=== PATIENT | male | born 1970 | race Caucasian/White ===

== ENCOUNTER 2020-05-25 12:59 | Emergency (ER) | payer MEDICARE ==
[~2020-05-25] VITALS: Wt 70.3 kg
[~2020-05-25 12:59] MED LIST: BENADRYL50 MG PO; KEFLEX500 MG PO; MOTRIN800 MG PO; PROTONIX40 MG PO; ZOFRAN ODT4 MG SL
[2020-05-25 14:08] LABS: BASO # 0.1 10*3/uL (0.0-0.1); BASO % 0.8 % (0.0-1.0); EOS # 0.4 10*3/uL (0.0-0.4); EOS % 6.6 % (1.0-4.0); HEMATOCRIT 37.3 % (42.0-52.0); LYMPH # 1.3 10*3/uL (1.3-4.4); LYMPH % 19.6 % (27.0-41.0); MEAN CELL VOLUME 87.1 fl (80.0-94.0); MEAN CORPUSCULAR HGB CONC 32.2 g/dl (33.0-37.0); MEAN PLATELET VOLUME 9.5 fl (9.6-12.3); MONO # 0.6 10*3/uL (0.1-1.0); MONO % 9.3 % (3.0-9.0); NEUT # 4.2 10*3/uL (2.3-7.9); NEUT % 63.5 % (47.0-73.0); PLATELET COUNT AUTOMATED 194 10*3/uL (130-400); RED BLOOD COUNT 4.28 10*6/uL (4.50-5.90); RED CELL DISTRI WIDTH 13.2 % (0-14.5); WHITE BLOOD COUNT 6.5 10*3/uL (4.8-10.8)
[2020-05-25 14:25] LABS: ALBUMIN 3.2 gm/dl (3.1-4.5); BUN 18 mg/dl (7-24); CHLORIDE 107 mmol/L (98-107); CREATININE 0.88 mg/dL (0.70-1.30); POTASSIUM 4.7 mmol/L (3.5-5.1); SGOT/AST 11 IU/L (3-35); SGPT/ALT 13 U/L (12-78); SODIUM 139 mmol/L (136-145); TOTAL PROTEIN 7.2 gm/dL (6.4-8.2)
[2020-05-25 14:26] LABS: ETHYL ALCOHOL < 3.0 mg/dl (<3)
[2020-05-25 14:28] LABS: ALKALINE PHOSPHATASE 98 U/L (45-117)
[2020-05-25 14:29] LABS: TROPONIN I < 0.015 ng/ml (<0.045)
[2020-05-25 16:04] LABS: BILIRUBIN Negative (Negative); BLOOD Negative (Negative); CLARITY Clear (Clear); COLOR Yellow (Yellow); GLUCOSE Negative (Negative); KETONE Trace (Negative); LEUKO ESTERASE Negative (Negative); NITRITE Negative (Negative); SPECIFIC GRAVITY >= 1.030 (1.001-1.030)
[2020-05-25 16:10] LABS: URINE AMPHETAMINES < 1000 (1000ng/ml); URINE BARBITURATES < 200 (200ng/ml); URINE BENZODIAZEPINES < 200 (200ng/ml); URINE CANNABINOIDS (THC) > 50 (50ng/ml); URINE COCAINE < 300 (300ng/ml); URINE METHADONE < 300 (300ng/ml); URINE OPIATES < 300 (300ng/ml)
[2020-05-25 16:11] LABS: URINE PHENCYCLIDINE < 25 (25ng/ml)
[2020-05-25 16:15] LABS: BACTERIA TRACE; EPITHELIAL CELLS 0-2; MUCOUS TRACE; WBC 0-2 wbc/hpf (0-5)
== END 2020-05-25 16:50 | disposition home or self-care (01) ==
LOC: ED 12:59
PROVIDERS: Physician Assistant
DX: S80.02XA Contusion of left knee, initial encounter (principal); S80.01XA Contusion of right knee, initial encounter; S00.81XA Abrasion of other part of head, initial encounter; F17.200 Nicotine dependence, unspecified, uncomplicated; W19.XXXA Unspecified fall, initial encounter; Y93.89 Activity, other specified; Y92.89 Other specified places as the place of occurrence of the external cause; Y99.8 Other external cause status

== ENCOUNTER 2020-05-30 05:21 | Emergency (ER) | payer MEDICARE ==
[~2020-05-30] VITALS: Ht 177.8 cm; Wt 74.8 kg
[2020-05-30 06:52] LABS: BASO % 0.5 % (0.0-1.0); EOS # 0.4 10*3/uL (0.0-0.4); EOS % 6.6 % (1.0-4.0); HEMATOCRIT 37.1 % (42.0-52.0); LYMPH # 1.1 10*3/uL (1.3-4.4); LYMPH % 17.9 % (27.0-41.0); MEAN CELL VOLUME 87.3 fl (80.0-94.0); MEAN CORPUSCULAR HGB 28.7 pg (27.0-31.0); MEAN CORPUSCULAR HGB CONC 32.9 g/dl (33.0-37.0); MONO # 1.1 10*3/uL (0.1-1.0); MONO % 18.2 % (3.0-9.0); NEUT # 3.4 10*3/uL (2.3-7.9); NEUT % 56.6 % (47.0-73.0); PLATELET COUNT AUTOMATED 161 10*3/uL (130-400); RED BLOOD COUNT 4.25 10*6/uL (4.50-5.90); RED CELL DISTRI WIDTH 13.2 % (0-14.5); WHITE BLOOD COUNT 6.1 10*3/uL (4.8-10.8)
[2020-05-30 07:09] LABS: ALBUMIN 3.1 gm/dl (3.1-4.5); ALKALINE PHOSPHATASE 93 U/L (45-117); BUN 13 mg/dl (7-24); CHLORIDE 104 mmol/L (98-107); CPK 172 U/L (39-308); CREATININE 0.84 mg/dL (0.70-1.30); POTASSIUM 3.7 mmol/L (3.5-5.1); SGOT/AST 12 IU/L (3-35); SGPT/ALT 18 U/L (12-78); SODIUM 138 mmol/L (136-145); TOTAL PROTEIN 7.3 gm/dL (6.4-8.2)
== END 2020-05-30 09:52 | disposition home or self-care (01) ==
LOC: ED 05:21
PROVIDERS: Internal Medicine
DX: R45.1 Restlessness and agitation (principal); F17.200 Nicotine dependence, unspecified, uncomplicated

== ENCOUNTER 2021-04-21 12:51 | Emergency (ER) | payer MEDICARE ==
[~2021-04-21] VITALS: Wt 68.0 kg
[2021-04-21 13:29] LABS: BASO # 0.1 10*3/uL (0.0-0.1); BASO % 0.8 % (0.0-1.0); EOS # 0.6 10*3/uL (0.0-0.4); EOS % 8.1 % (1.0-4.0); LYMPH # 1.8 10*3/uL (1.3-4.4); LYMPH % 23.6 % (27.0-41.0); MEAN CELL VOLUME 87.3 fl (80.0-94.0); MEAN CORPUSCULAR HGB 27.8 pg (27.0-31.0); MEAN CORPUSCULAR HGB CONC 31.9 g/dl (33.0-37.0); MEAN PLATELET VOLUME 9.6 fl (9.6-12.3); MONO # 0.8 10*3/uL (0.1-1.0); MONO % 10.6 % (3.0-9.0); NEUT # 4.3 10*3/uL (2.3-7.9); NEUT % 56.6 % (47.0-73.0); PLATELET COUNT AUTOMATED 188 10*3/uL (130-400); RED BLOOD COUNT 4.24 10*6/uL (4.50-5.90); RED CELL DISTRI WIDTH 14.2 % (0-14.5); WHITE BLOOD COUNT 7.5 10*3/uL (4.8-10.8)
[2021-04-21 13:37] LABS: BILIRUBIN Negative (Negative); BLOOD Negative (Negative); CLARITY Clear (Clear); COLOR Yellow (Yellow); GLUCOSE Negative (Negative); KETONE Negative (Negative); LEUKO ESTERASE Negative (Negative); NITRITE Negative (Negative); PH 6.5 (4.5-8.0); SPECIFIC GRAVITY 1.025 (1.001-1.030)
[2021-04-21 13:45] LABS: BACTERIA TRACE; EPITHELIAL CELLS 0-2; MUCOUS 1+; WBC 0-2 wbc/hpf (0-5)
[2021-04-21 13:46] LABS: ALBUMIN 3.1 gm/dl (3.1-4.5); ALKALINE PHOSPHATASE 111 U/L (45-117); BUN 15 mg/dl (7-24); CHLORIDE 104 mmol/L (98-107); CREATININE 0.75 mg/dL (0.70-1.30); POTASSIUM 3.9 mmol/L (3.5-5.1); SGOT/AST 15 IU/L (3-35); SGPT/ALT 16 U/L (12-78); SODIUM 136 mmol/L (136-145); TOTAL PROTEIN 7.4 gm/dL (6.4-8.2)
== END 2021-04-21 16:38 | disposition home or self-care (01) ==
LOC: ED 12:51
PROVIDERS: Physician Assistant
DX: Z00.00 Encounter for general adult medical examination without abnormal findings (principal)

== ENCOUNTER 2021-04-25 15:14 | Emergency (ER) | payer MEDICARE | END 2021-04-25 17:09 | disposition home or self-care (01) | LOC: ED 15:14 | DX: S60.416A Abrasion of right little finger, initial encounter (principal); W18.39XA Other fall on same level, initial encounter; Y93.89 Activity, other specified; Y92.89 Other specified places as the place of occurrence of the external cause; Y99.8 Other external cause status ==

== ENCOUNTER 2021-10-11 10:13 | Emergency (ER) | payer MEDICARE ==
[~2021-10-11] VITALS: Wt 71.7 kg
[2021-10-11 11:38] LABS: BASO # 0.1 10*3/uL (0.0-0.1); BASO % 0.6 % (0.0-1.0); EOS # 0.3 10*3/uL (0.0-0.4); HEMATOCRIT 33.3 % (42.0-52.0); LYMPH # 1.2 10*3/uL (1.3-4.4); MEAN CELL VOLUME 87.9 fl (80.0-94.0); MEAN CORPUSCULAR HGB 28.8 pg (27.0-31.0); MEAN CORPUSCULAR HGB CONC 32.7 g/dl (33.0-37.0); MEAN PLATELET VOLUME 10.5 fl (9.6-12.3); NEUT # 5.6 10*3/uL (2.3-7.9); PLATELET COUNT AUTOMATED 150 10*3/uL (130-400); RED BLOOD COUNT 3.79 10*6/uL (4.50-5.90); RED CELL DISTRI WIDTH 13.9 % (0-14.5); WHITE BLOOD COUNT 8.2 10*3/uL (4.8-10.8)
[2021-10-11 11:55] LABS: ALKALINE PHOSPHATASE 108 U/L (45-117); BUN 13 mg/dl (7-24); CHLORIDE 107 mmol/L (98-107); CREATININE 0.81 mg/dL (0.70-1.30); POTASSIUM 3.8 mmol/L (3.5-5.1); SGOT/AST 17 IU/L (3-35); SGPT/ALT 16 U/L (12-78); SODIUM 135 mmol/L (136-145); TOTAL PROTEIN 7.1 gm/dL (6.4-8.2)
[2021-10-11 14:21] LABS: BILIRUBIN Negative (Negative); BLOOD Negative (Negative); CLARITY Cloudy (Clear); COLOR Yellow (Yellow); GLUCOSE Negative (Negative); KETONE Trace (Negative); LEUKO ESTERASE 3+ (Negative); NITRITE Positive (Negative); SPECIFIC GRAVITY 1.025 (1.001-1.030)
[2021-10-11 14:37] LABS: BACTERIA 3+; WBC 21-30 wbc/hpf (0-5)
[2021-10-11] MEDS ORDERED: MACROBID100 M1 PO (15:19)
== END 2021-10-11 15:30 | disposition home or self-care (01) ==
LOC: ED 10:13
PROVIDERS: Student in an Organized Health Care Education/Training Program
DX: S00.83XA Contusion of other part of head, initial encounter (principal); N39.0 Urinary tract infection, site not specified; W18.39XA Other fall on same level, initial encounter; Y93.89 Activity, other specified; Y92.89 Other specified places as the place of occurrence of the external cause; Y99.8 Other external cause status

== ENCOUNTER 2022-01-11 17:58 | Inpatient (IN) | payer OTHER ==
[~2022-01-11] VITALS: Ht 182.8 cm; Wt 74.0 kg
[~2022-01-11 17:58] MED LIST changes: +MACROBID100 M1 PO
[2022-01-11 18:51] VITALS: BP 98/63
[2022-01-11 20:21] LABS: BASO # 0.1 10*3/uL (0.0-0.1); BASO % 0.4 % (0.0-1.0); EOS # 0.2 10*3/uL (0.0-0.4); EOS % 1.1 % (1.0-4.0); HEMATOCRIT 35.7 % (42.0-52.0); LYMPH # 1.4 10*3/uL (1.3-4.4); LYMPH % 9.4 % (27.0-41.0); MEAN CELL VOLUME 86.2 fl (80.0-94.0); MEAN CORPUSCULAR HGB 28.7 pg (27.0-31.0); MEAN CORPUSCULAR HGB CONC 33.3 g/dl (33.0-37.0); MEAN PLATELET VOLUME 9.8 fl (9.6-12.3); MONO # 1.4 10*3/uL (0.1-1.0); MONO % 9.5 % (3.0-9.0); NEUT # 11.4 10*3/uL (2.3-7.9); NEUT % 79.1 % (47.0-73.0); PLATELET COUNT AUTOMATED 217 10*3/uL (130-400); RED BLOOD COUNT 4.14 10*6/uL (4.50-5.90); RED CELL DISTRI WIDTH 13.4 % (0-14.5); WHITE BLOOD COUNT 14.4 10*3/uL (4.8-10.8)
[2022-01-11 20:31] LABS: ACT PARTIAL THROMBO TIME 30.2 SECONDS (20.0-32.1); INTERNATIONAL NORM RATIO 1.1 (2.0-3.5)
[2022-01-11 20:38] LABS: ALKALINE PHOSPHATASE 157 U/L (45-117); BUN 17 mg/dl (7-24); CHLORIDE 102 mmol/L (98-107); CREATININE 0.82 mg/dL (0.70-1.30); LIPASE 130 U/L (73-393); POTASSIUM 3.8 mmol/L (3.5-5.1); SGOT/AST 20 IU/L (3-35); SGPT/ALT 21 U/L (12-78); SODIUM 137 mmol/L (136-145); TOTAL PROTEIN 7.6 gm/dL (6.4-8.2)
[2022-01-11] MEDS ORDERED: TRAZODONE150 MG PO (23:03)
[2022-01-11] MEDS ORDERED: RISPERIDONE2 M2 PO (23:05)
[2022-01-11] MEDS ORDERED: DONEPEZIL HCL10 MG PO (23:05)
[2022-01-11] MEDS ORDERED: GOOD NEIGHBOR L10 MG PO (23:06)
[2022-01-11] MEDS ORDERED: TERBINAFINE250 MG PO (23:06)
[2022-01-11 23:16] VITALS: BP 102/65
[2022-01-12] VITALS (9 sets, daily range): BP systolic 89–112; BP diastolic 59–74
[2022-01-12] MEDS ORDERED: RISPERDAL2 M1 PO (01:26)
[2022-01-12] MEDS ORDERED: TRAZODONE150 MG PO (01:26)
[2022-01-12] MEDS ORDERED: DONEPEZIL HYDRO10 MG PO (01:26)
[2022-01-12] MEDS ORDERED: GOOD NEIGHBOR L10 MG PO (01:28)
[2022-01-12 05:25] LABS: BUN 13 mg/dl (7-24); CHLORIDE 107 mmol/L (98-107); CREATININE 0.64 mg/dL (0.70-1.30); POTASSIUM 3.6 mmol/L (3.5-5.1); SODIUM 140 mmol/L (136-145)
[2022-01-12 06:04] LABS: HEMATOCRIT 30.7 % (42.0-52.0); MEAN CELL VOLUME 88.2 fl (80.0-94.0); MEAN CORPUSCULAR HGB 28.7 pg (27.0-31.0); MEAN CORPUSCULAR HGB CONC 32.6 g/dl (33.0-37.0); MEAN PLATELET VOLUME 10.3 fl (9.6-12.3); PLATELET COUNT AUTOMATED 210 10*3/uL (130-400); RED BLOOD COUNT 3.48 10*6/uL (4.50-5.90); RED CELL DISTRI WIDTH 13.5 % (0-14.5); WHITE BLOOD COUNT 14.3 10*3/uL (4.8-10.8)
[2022-01-12 06:09] LABS: MANUAL DIFF REFLEX YES
[2022-01-12 06:29] LABS: TOTAL CELLS COUNTED 100 #CELLS
[2022-01-12 06:30] LABS: ACANTHOCYTES FEW; BURR CELLS MODERATE; PLATELET SUFFICIENCY NORMAL (NORMAL); SCHISTOCYTES FEW
[2022-01-13] VITALS: BP 109/75
[2022-01-13 05:08] LABS: BUN 6 mg/dl (7-24); CHLORIDE 108 mmol/L (98-107); CREATININE 0.63 mg/dL (0.70-1.30); POTASSIUM 3.6 mmol/L (3.5-5.1); SGOT/AST 14 IU/L (3-35); SGPT/ALT 17 U/L (12-78); SODIUM 140 mmol/L (136-145); TOTAL PROTEIN 6.4 gm/dL (6.4-8.2)
[2022-01-13 05:09] LABS: ALKALINE PHOSPHATASE 121 U/L (45-117)
[2022-01-13 06:37] LABS: BASO # 0.1 10*3/uL (0.0-0.1); BASO % 0.6 % (0.0-1.0); EOS # 0.6 10*3/uL (0.0-0.4); EOS % 4.9 % (1.0-4.0); HEMATOCRIT 31.6 % (42.0-52.0); LYMPH # 1.6 10*3/uL (1.3-4.4); LYMPH % 12.7 % (27.0-41.0); MEAN CELL VOLUME 88.8 fl (80.0-94.0); MEAN CORPUSCULAR HGB 28.7 pg (27.0-31.0); MEAN CORPUSCULAR HGB CONC 32.3 g/dl (33.0-37.0); MEAN PLATELET VOLUME 10.2 fl (9.6-12.3); MONO # 1.2 10*3/uL (0.1-1.0); MONO % 9.8 % (3.0-9.0); NEUT # 9.1 10*3/uL (2.3-7.9); NEUT % 71.8 % (47.0-73.0); PLATELET COUNT AUTOMATED 207 10*3/uL (130-400); RED BLOOD COUNT 3.56 10*6/uL (4.50-5.90); RED CELL DISTRI WIDTH 13.5 % (0-14.5); WHITE BLOOD COUNT 12.6 10*3/uL (4.8-10.8)
[2022-01-13 08:00] VITALS: BP 110/71
[2022-01-13 12:00] VITALS: BP 104/68
[2022-01-13 16:00] VITALS: BP 114/67
[2022-01-13 20:00] VITALS: BP 108/61
[2022-01-14] VITALS: BP 105/62
[2022-01-14 06:21] LABS: ALKALINE PHOSPHATASE 117 U/L (45-117); BUN 7 mg/dl (7-24); CHLORIDE 107 mmol/L (98-107); CREATININE 0.74 mg/dL (0.70-1.30); POTASSIUM 4.2 mmol/L (3.5-5.1); SGOT/AST 11 IU/L (3-35); SGPT/ALT 15 U/L (12-78); SODIUM 141 mmol/L (136-145); TOTAL PROTEIN 6.6 gm/dL (6.4-8.2)
[2022-01-14 06:32] LABS: BASO # 0.1 10*3/uL (0.0-0.1); BASO % 0.8 % (0.0-1.0); EOS # 0.7 10*3/uL (0.0-0.4); EOS % 6.3 % (1.0-4.0); HEMATOCRIT 33.1 % (42.0-52.0); LYMPH # 1.3 10*3/uL (1.3-4.4); LYMPH % 11.6 % (27.0-41.0); MEAN CORPUSCULAR HGB 28.8 pg (27.0-31.0); MEAN CORPUSCULAR HGB CONC 32.3 g/dl (33.0-37.0); MEAN PLATELET VOLUME 9.8 fl (9.6-12.3); MONO # 1.1 10*3/uL (0.1-1.0); MONO % 9.5 % (3.0-9.0); NEUT # 8.1 10*3/uL (2.3-7.9); NEUT % 71.4 % (47.0-73.0); PLATELET COUNT AUTOMATED 206 10*3/uL (130-400); RED BLOOD COUNT 3.72 10*6/uL (4.50-5.90); RED CELL DISTRI WIDTH 13.2 % (0-14.5); WHITE BLOOD COUNT 11.3 10*3/uL (4.8-10.8)
[2022-01-14 08:00] VITALS: BP 94/59
[2022-01-14 09:00] VITALS: BP 94/59
[2022-01-14 12:00] VITALS: BP 97/57
[2022-01-14 16:00] VITALS: BP 107/61
[2022-01-14 20:00] VITALS: BP 110/66; BP 99/69
[2022-01-15] VITALS (7 sets, daily range): BP systolic 86–114; BP diastolic 45–70
[2022-01-15 07:12] LABS: BASO # 0.1 10*3/uL (0.0-0.1); BASO % 0.8 % (0.0-1.0); EOS # 0.7 10*3/uL (0.0-0.4); EOS % 8.2 % (1.0-4.0); HEMATOCRIT 33.4 % (42.0-52.0); LYMPH # 1.4 10*3/uL (1.3-4.4); LYMPH % 16.2 % (27.0-41.0); MEAN CELL VOLUME 87.7 fl (80.0-94.0); MEAN CORPUSCULAR HGB 28.9 pg (27.0-31.0); MEAN CORPUSCULAR HGB CONC 32.9 g/dl (33.0-37.0); MEAN PLATELET VOLUME 9.4 fl (9.6-12.3); MONO % 11.8 % (3.0-9.0); NEUT # 5.5 10*3/uL (2.3-7.9); NEUT % 62.7 % (47.0-73.0); PLATELET COUNT AUTOMATED 211 10*3/uL (130-400); RED BLOOD COUNT 3.81 10*6/uL (4.50-5.90); RED CELL DISTRI WIDTH 13.1 % (0-14.5); WHITE BLOOD COUNT 8.7 10*3/uL (4.8-10.8)
[2022-01-15 07:28] LABS: BUN 6 mg/dl (7-24); CHLORIDE 108 mmol/L (98-107); SODIUM 141 mmol/L (136-145)
[2022-01-16] VITALS: BP 95/58
[2022-01-16 08:00] VITALS: BP 118/66
[2022-01-16 12:00] VITALS: BP 110/56
[2022-01-16 16:00] VITALS: BP 110/70
[2022-01-16 20:00] VITALS: BP 98/60
[2022-01-16] MEDS ORDERED: VANCO 1.251.25 GM/25 IV ×2 (21:06)
[2022-01-17] VITALS: BP 97/53
[2022-01-17 07:59] LABS: BASO # 0.1 10*3/uL (0.0-0.1); BASO % 0.7 % (0.0-1.0); EOS # 0.5 10*3/uL (0.0-0.4); EOS % 3.7 % (1.0-4.0); HEMATOCRIT 33.7 % (42.0-52.0); LYMPH # 1.4 10*3/uL (1.3-4.4); LYMPH % 11.7 % (27.0-41.0); MEAN CELL VOLUME 88.2 fl (80.0-94.0); MEAN CORPUSCULAR HGB 28.8 pg (27.0-31.0); MEAN CORPUSCULAR HGB CONC 32.6 g/dl (33.0-37.0); MONO # 1.3 10*3/uL (0.1-1.0); MONO % 10.5 % (3.0-9.0); NEUT # 8.9 10*3/uL (2.3-7.9); PLATELET COUNT AUTOMATED 235 10*3/uL (130-400); RED BLOOD COUNT 3.82 10*6/uL (4.50-5.90); RED CELL DISTRI WIDTH 13.3 % (0-14.5); WHITE BLOOD COUNT 12.2 10*3/uL (4.8-10.8)
[2022-01-17 08:00] VITALS: BP 177/54
[2022-01-17 08:11] LABS: BUN 11 mg/dl (7-24); CHLORIDE 109 mmol/L (98-107); CREATININE 1.05 mg/dL (0.70-1.30); SODIUM 145 mmol/L (136-145)
[2022-01-17 12:00] VITALS: BP 132/69
[2022-01-17 16:00] VITALS: BP 92/55
[2022-01-17 20:00] VITALS: BP 92/56
[2022-01-18] VITALS: BP 97/42
[2022-01-18 07:04] LABS: BASO # 0.1 10*3/uL (0.0-0.1); BASO % 0.6 % (0.0-1.0); EOS # 0.5 10*3/uL (0.0-0.4); EOS % 4.9 % (1.0-4.0); HEMATOCRIT 33.7 % (42.0-52.0); LYMPH # 1.5 10*3/uL (1.3-4.4); LYMPH % 13.5 % (27.0-41.0); MEAN CELL VOLUME 89.9 fl (80.0-94.0); MEAN CORPUSCULAR HGB CONC 31.2 g/dl (33.0-37.0); MEAN PLATELET VOLUME 9.7 fl (9.6-12.3); MONO # 1.3 10*3/uL (0.1-1.0); MONO % 11.9 % (3.0-9.0); NEUT # 7.5 10*3/uL (2.3-7.9); NEUT % 68.8 % (47.0-73.0); PLATELET COUNT AUTOMATED 230 10*3/uL (130-400); RED BLOOD COUNT 3.75 10*6/uL (4.50-5.90); RED CELL DISTRI WIDTH 13.2 % (0-14.5); WHITE BLOOD COUNT 10.9 10*3/uL (4.8-10.8)
[2022-01-18 07:20] LABS: BUN 14 mg/dl (7-24); CHLORIDE 108 mmol/L (98-107); CREATININE 1.04 mg/dL (0.70-1.30); POTASSIUM 4.2 mmol/L (3.5-5.1); SODIUM 142 mmol/L (136-145)
[2022-01-18 08:00] VITALS: BP 99/57
[2022-01-18 12:00] VITALS: BP 90/50
[2022-01-18] MEDS ORDERED: KIMYRSA1200 MG IV (15:40)
[2022-01-18 16:00] VITALS: BP 118/60
[2022-01-18 20:00] VITALS: BP 91/55
[2022-01-19] VITALS: BP 96/52
[2022-01-19 06:48] LABS: BASO # 0.1 10*3/uL (0.0-0.1); BASO % 0.7 % (0.0-1.0); EOS # 0.6 10*3/uL (0.0-0.4); EOS % 5.1 % (1.0-4.0); HEMATOCRIT 34.3 % (42.0-52.0); LYMPH # 1.6 10*3/uL (1.3-4.4); LYMPH % 14.8 % (27.0-41.0); MEAN CELL VOLUME 90.3 fl (80.0-94.0); MEAN CORPUSCULAR HGB 28.4 pg (27.0-31.0); MEAN CORPUSCULAR HGB CONC 31.5 g/dl (33.0-37.0); MEAN PLATELET VOLUME 9.8 fl (9.6-12.3); MONO # 1.4 10*3/uL (0.1-1.0); MONO % 13.3 % (3.0-9.0); NEUT % 65.7 % (47.0-73.0); PLATELET COUNT AUTOMATED 229 10*3/uL (130-400); RED CELL DISTRI WIDTH 13.3 % (0-14.5); WHITE BLOOD COUNT 10.7 10*3/uL (4.8-10.8)
[2022-01-19 07:24] LABS: BUN 13 mg/dl (7-24); CHLORIDE 108 mmol/L (98-107); CREATININE 0.95 mg/dL (0.70-1.30); POTASSIUM 4.5 mmol/L (3.5-5.1); SODIUM 143 mmol/L (136-145)
[2022-01-19 08:00] VITALS: BP 117/58
[2022-01-19 12:00] VITALS: BP 105/48; BP 174/58
[2022-01-19] MEDS ORDERED: Bactroban Oint22 GM T (12:09)
== END 2022-01-19 16:22 | DRG 872 ==
LOC: ED 17:58 → 4E 22:49 → EDHOLD 22:49 → 4E 01-12 15:26 → 5E 01-17 13:40
PROVIDERS: Family Medicine; Internal Medicine; Internal Medicine Infectious Disease; Student in an Organized Health Care Education/Training Program; ADMIT Internal Medicine; ATTEND Internal Medicine
PROC: 0J970ZZ Drainage of Back Subcutaneous Tissue and Fascia, Open Approach (ICD-10-PCS; principal; 2022-01-15)
DX: A41.9 Sepsis, unspecified organism (principal); E44.0 Moderate protein-calorie malnutrition; L02.212 Cutaneous abscess of back [any part, except buttock and flank]; G10 Huntington's disease; L03.312 Cellulitis of back [any part except buttock and flank]; Z20.822 Contact with and (suspected) exposure to COVID-19; F17.210 Nicotine dependence, cigarettes, uncomplicated; D64.9 Anemia, unspecified; R73.9 Hyperglycemia, unspecified; B35.1 Tinea unguium; B95.62 Methicillin resistant Staphylococcus aureus infection as the cause of diseases classified elsewhere; L60.2 Onychogryphosis; R00.1 Bradycardia, unspecified; R13.10 Dysphagia, unspecified; Z82.0 Family history of epilepsy and other diseases of the nervous system; Z79.899 Other long term (current) drug therapy; Z68.22 Body mass index [BMI] 22.0-22.9, adult

== ENCOUNTER → 2022-02-20 | Outpatient (CLI) | payer OTHER, MEDICAID ==
[~2022-02-20] MED LIST changes: +Bactroban Oint22 GM T; +DONEPEZIL HCL10 MG PO; +DONEPEZIL HYDRO10 MG PO; +GOOD NEIGHBOR L10 MG PO; +KIMYRSA1200 MG IV; +RISPERDAL2 M1 PO; +RISPERIDONE2 M2 PO; +TERBINAFINE250 MG PO; +TRAZODONE150 MG PO; +VANCO 1.251.25 GM/25 IV
== END | disposition home or self-care (01) ==
LOC: US 12:48
PROVIDERS: ATTEND Internal Medicine
DX: I86.1 Scrotal varices (principal); N50.9 Disorder of male genital organs, unspecified

== ENCOUNTER 2022-07-27 14:20 | Emergency (ER) | payer OTHER, MEDICAID ==
[~2022-07-27] VITALS: Ht 185.4 cm; Wt 73.7 kg
[2022-07-27 14:58] LABS: BASO # 0.1 10*3/uL (0.0-0.1); BASO % 0.3 % (0.0-1.0); EOS # 0.4 10*3/uL (0.0-0.4); EOS % 2.4 % (1.0-4.0); HEMATOCRIT 34.5 % (42.0-52.0); LYMPH # 2.3 10*3/uL (1.3-4.4); LYMPH % 14.7 % (27.0-41.0); MEAN CELL VOLUME 88.2 fl (80.0-94.0); MEAN CORPUSCULAR HGB 29.9 pg (27.0-31.0); MEAN CORPUSCULAR HGB CONC 33.9 g/dl (33.0-37.0); MEAN PLATELET VOLUME 10.3 fl (9.6-12.3); MONO # 1.3 10*3/uL (0.1-1.0); MONO % 8.7 % (3.0-9.0); NEUT # 11.4 10*3/uL (2.3-7.9); NEUT % 73.6 % (47.0-73.0); PLATELET COUNT AUTOMATED 230 10*3/uL (130-400); RED BLOOD COUNT 3.91 10*6/uL (4.50-5.90); RED CELL DISTRI WIDTH 12.7 % (0-14.5); WHITE BLOOD COUNT 15.4 10*3/uL (4.8-10.8)
[2022-07-27] MEDS ORDERED: BENADRYL25 M2 PO (15:02)
[2022-07-27] MEDS ORDERED: ATARAX,VISTARIL10 MG PO (15:03)
[2022-07-27] MEDS ORDERED: TYLENOL325 M1 PO (15:05)
[2022-07-27 15:20] LABS: ALKALINE PHOSPHATASE 90 U/L (46-116); BUN 8 mg/dl (9-23); CHLORIDE 102 mmol/L (98-107); POTASSIUM 3.8 mmol/L (3.4-5.1); SGPT/ALT 18 U/L (10-49); TOTAL PROTEIN 7.2 gm/dL (6.0-8.0)
[2022-07-27] MEDS ORDERED: SEPTDS PO (16:28)
[2022-07-28] MEDS ORDERED: ATARAX,VISTARIL10 MG PO (07:37)
[2022-07-28] MEDS ORDERED: SEPTDS PO (07:37)
== END 2022-07-27 18:36 | disposition home or self-care (01) ==
LOC: ED 14:20
PROVIDERS: Emergency Medicine
DX: L03.113 Cellulitis of right upper limb (principal); T78.40XA Allergy, unspecified, initial encounter; F17.200 Nicotine dependence, unspecified, uncomplicated; X58.XXXA Exposure to other specified factors, initial encounter

== ENCOUNTER 2023-04-16 07:05 | Emergency (ER) | payer OTHER ==
[~2023-04-16 07:05] MED LIST changes: +ATARAX,VISTARIL10 MG PO; +BENADRYL25 M2 PO; +DEPAKOTE SPRIN125 MG PO; +SEPTDS PO; +TYLENOL325 M1 PO
== END 2023-04-16 10:08 ==
LOC: ED 07:05
DX: S01.111A Laceration without foreign body of right eyelid and periocular area, initial encounter (principal); F41.9 Anxiety disorder, unspecified; K21.9 Gastro-esophageal reflux disease without esophagitis; D64.9 Anemia, unspecified; F03.90 Unspecified dementia, unspecified severity, without behavioral disturbance, psychotic disturbance, mood disturbance, and anxiety; F17.200 Nicotine dependence, unspecified, uncomplicated; W19.XXXA Unspecified fall, initial encounter; Y93.89 Activity, other specified; Y92.89 Other specified places as the place of occurrence of the external cause; Y99.8 Other external cause status

== ENCOUNTER 2023-04-27 00:50 | Emergency (ER) | payer OTHER | END 2023-04-27 07:33 | LOC: ED 00:50 | DX: S09.90XA Unspecified injury of head, initial encounter (principal); F03.90 Unspecified dementia, unspecified severity, without behavioral disturbance, psychotic disturbance, mood disturbance, and anxiety; F41.9 Anxiety disorder, unspecified; F17.200 Nicotine dependence, unspecified, uncomplicated; Z79.899 Other long term (current) drug therapy; W05.0XXA Fall from non-moving wheelchair, initial encounter; Y93.89 Activity, other specified; Y92.128 Other place in nursing home as the place of occurrence of the external cause; Y99.8 Other external cause status ==

== ENCOUNTER 2023-07-09 03:38 | Emergency (ER) | payer OTHER ==
[~2023-07-09] VITALS: Ht 187.9 cm; Wt 75.3 kg
[2023-07-09 04:22] LABS: BASO # 0.1 10*3/uL (0.0-0.1); BASO % 0.6 % (0.0-1.0); EOS # 0.8 10*3/uL (0.0-0.4); EOS % 10.4 % (1.0-4.0); HEMATOCRIT 37.8 % (42.0-52.0); LYMPH # 2.5 10*3/uL (1.3-4.4); LYMPH % 31.7 % (27.0-41.0); MEAN CELL VOLUME 93.6 fl (80.0-94.0); MEAN PLATELET VOLUME 9.9 fl (9.6-12.3); MONO % 12.7 % (3.0-9.0); NEUT # 3.4 10*3/uL (2.3-7.9); NEUT % 44.3 % (47.0-73.0); PLATELET COUNT AUTOMATED 196 10*3/uL (130-400); RED BLOOD COUNT 4.04 10*6/uL (4.50-5.90); WHITE BLOOD COUNT 7.7 10*3/uL (4.8-10.8)
[2023-07-09 04:48] LABS: ALKALINE PHOSPHATASE 91 U/L (46-116); BUN 11 mg/dl (9-23); CHLORIDE 102 mmol/L (98-107); POTASSIUM 4.1 mmol/L (3.4-5.1); SGPT/ALT 19 U/L (5-49); TOTAL PROTEIN 7.3 gm/dL (6.0-8.0)
== END 2023-07-09 06:50 ==
LOC: ED 03:38
PROVIDERS: Student in an Organized Health Care Education/Training Program
DX: S01.81XA Laceration without foreign body of other part of head, initial encounter (principal); F41.9 Anxiety disorder, unspecified; F03.90 Unspecified dementia, unspecified severity, without behavioral disturbance, psychotic disturbance, mood disturbance, and anxiety; K21.9 Gastro-esophageal reflux disease without esophagitis; D64.9 Anemia, unspecified; F17.200 Nicotine dependence, unspecified, uncomplicated; W19.XXXA Unspecified fall, initial encounter; Y93.89 Activity, other specified; Y92.129 Unspecified place in nursing home as the place of occurrence of the external cause; Y99.8 Other external cause status

== ENCOUNTER 2023-11-10 07:43 | Emergency (ER) | payer OTHER ==
[~2023-11-10] VITALS: Ht 177.8 cm; Wt 72.6 kg
[2023-11-10 08:00] LABS: HEMATOCRIT 35.8 % (42.0-52.0); MEAN CELL VOLUME 93.7 fl (80.0-94.0); MEAN CORPUSCULAR HGB 30.4 pg (27.0-31.0); MEAN CORPUSCULAR HGB CONC 32.4 g/dl (33.0-37.0); MEAN PLATELET VOLUME 10.1 fl (9.6-12.3); PLATELET COUNT AUTOMATED 199 10*3/uL (130-400); RED BLOOD COUNT 3.82 10*6/uL (4.50-5.90); RED CELL DISTRI WIDTH 13.2 % (0-14.5); WHITE BLOOD COUNT 8.9 10*3/uL (4.8-10.8)
[2023-11-10] MEDS ORDERED: RISPERIDONE1 MG PO (08:01)
[2023-11-10] MEDS ORDERED: RISPERIDONE3 M2 PO (08:02)
[2023-11-10 08:08] LABS: MANUAL DIFF REFLEX YES
[2023-11-10 08:20] LABS: BUN 8 mg/dl (9-23); CHLORIDE 103 mmol/L (98-107); POTASSIUM 3.8 mmol/L (3.4-5.1)
[2023-11-10 08:30] LABS: ATYPICAL LYMPHS 1 % (0-0); BASOPHILS 2 % (0-1); TOTAL CELLS COUNTED 100 #CELLS
[2023-11-10 08:31] LABS: OVALOCYTES FEW; PLATELET SUFFICIENCY NORMAL (NORMAL); POLYCHROMASIA SLIGHT; TOXIC GRANULATION SLIGHT
[2023-11-10] MEDS ORDERED: Ciprofloxacin Hydrochloride 500 MG TAB PO ONE ×2 (08:45→08:50)
== END 2023-11-10 10:40 | disposition home or self-care (01) ==
LOC: ED 07:43
PROVIDERS: Internal Medicine
DX: N39.0 Urinary tract infection, site not specified (principal); D64.9 Anemia, unspecified; F41.9 Anxiety disorder, unspecified; K21.9 Gastro-esophageal reflux disease without esophagitis; F03.90 Unspecified dementia, unspecified severity, without behavioral disturbance, psychotic disturbance, mood disturbance, and anxiety; F17.200 Nicotine dependence, unspecified, uncomplicated; W06.XXXA Fall from bed, initial encounter

== ENCOUNTER 2024-05-13 20:54 | Emergency (ER) | payer OTHER ==
[~2024-05-13] VITALS: Wt 77.1 kg
[~2024-05-13 20:54] MED LIST changes: +RISPERIDONE1 MG PO; +RISPERIDONE3 M2 PO
[2024-05-13] MEDS ORDERED: Ondansetron Hydrochloride 4 MG/2 ML VIAL IV ONE (21:25)
[2024-05-13] MEDS ORDERED: SODIUM CHLORIDE 0.9% 1,000 ML IV ONE (21:25)
[2024-05-13] MEDS ORDERED: FAMOTIDINE 50 ML IV ONE (21:25)
[2024-05-13] MEDS ORDERED: Ketamine Hydrochloride 500 MG/10 ML VIAL IM ONE (21:40)
[2024-05-13 22:22] LABS: BASO % 0.5 % (0.0-1.0); EOS # 0.4 10*3/uL (0.0-0.4); EOS % 4.6 % (1.0-4.0); HEMATOCRIT 34.7 % (42.0-52.0); MEAN CELL VOLUME 92.8 fl (80.0-94.0); MEAN CORPUSCULAR HGB 29.9 pg (27.0-31.0); MEAN CORPUSCULAR HGB CONC 32.3 g/dl (33.0-37.0); MEAN PLATELET VOLUME 10.2 fl (9.6-12.3); MONO # 1.1 10*3/uL (0.1-1.0); MONO % 12.3 % (3.0-9.0); NEUT # 5.4 10*3/uL (2.3-7.9); NEUT % 62.6 % (47.0-73.0); PLATELET COUNT AUTOMATED 188 10*3/uL (130-400); RED BLOOD COUNT 3.74 10*6/uL (4.50-5.90); RED CELL DISTRI WIDTH 13.2 % (0-14.5); WHITE BLOOD COUNT 8.7 10*3/uL (4.8-10.8)
[2024-05-13 22:33] LABS: ACT PARTIAL THROMBO TIME 29.6 SECONDS (20.0-32.1)
[2024-05-13 22:45] LABS: ALKALINE PHOSPHATASE 65 U/L (46-116); BUN 10 mg/dl (9-23); CHLORIDE 104 mmol/L (98-107); CPK 177 U/L (34-171); LIPASE 35 U/L (12-53); POTASSIUM 3.9 mmol/L (3.4-5.1); SGPT/ALT 7 U/L (5-49); TOTAL PROTEIN 6.3 gm/dL (6.0-8.0)
[2024-05-13] MEDS ORDERED: CEFACLOR250 MG/51 PO (23:14)
[2024-05-13] MEDS ORDERED: Ondansetron4 MG PO (23:17)
[2024-05-16] MEDS ORDERED: CEPHALEXIN500 M1 PO (22:26)
[2024-05-16] MEDS ORDERED: CVS TUSSIN CF237 ML PO (22:26)
[2024-05-16] MEDS ORDERED: Ondansetron4 MG PO (22:27)
[2024-05-16] MEDS ORDERED: VITAMIN D325 MCG PO (22:30)
== END 2024-05-13 23:23 ==
LOC: ED 20:54
PROVIDERS: Emergency Medicine
DX: L03.116 Cellulitis of left lower limb (principal); R11.2 Nausea with vomiting, unspecified; F17.200 Nicotine dependence, unspecified, uncomplicated; Z79.899 Other long term (current) drug therapy; W18.39XA Other fall on same level, initial encounter; Y93.89 Activity, other specified; Y92.89 Other specified places as the place of occurrence of the external cause; Y99.8 Other external cause status

== ENCOUNTER 2024-07-06 06:26 | Emergency (ER) | payer OTHER ==
[~2024-07-06] VITALS: Ht 172.7 cm; Wt 72.6 kg
[~2024-07-06 06:26] MED LIST changes: +AMOX-CLAV 875-1 EACH PO; +CEFACLOR250 MG/51 PO; +CEPHALEXIN500 M1 PO; +CVS TUSSIN CF237 ML PO; +DOXYCYCLINE HY100 M3 PO; +Ondansetron4 MG PO; +VITAMIN D325 MCG PO
[2024-07-06] MEDS ORDERED: LORazepam 2 MG/ML VIAL ONE (07:09)
[2024-07-06] MEDS ORDERED: DERMABOND 1 EA APPL T ONE (07:29)
== END 2024-07-06 12:27 | disposition home or self-care (01) ==
LOC: ED 06:26
DX: S01.112A Laceration without foreign body of left eyelid and periocular area, initial encounter (principal); F41.9 Anxiety disorder, unspecified; K21.9 Gastro-esophageal reflux disease without esophagitis; D64.9 Anemia, unspecified; F03.90 Unspecified dementia, unspecified severity, without behavioral disturbance, psychotic disturbance, mood disturbance, and anxiety; Z87.891 Personal history of nicotine dependence; W06.XXXA Fall from bed, initial encounter; Y93.89 Activity, other specified; Y92.128 Other place in nursing home as the place of occurrence of the external cause; Y99.8 Other external cause status

== ENCOUNTER 2024-08-12 22:20 | Inpatient (IN) | payer OTHER ==
[~2024-08-12] VITALS: Ht 185.4 cm; Wt 67.3 kg
[2024-08-12 22:30] VITALS: BP 103/73
[2024-08-12] MEDS ORDERED: Albuterol Sulf/Ipratropium 3 ML VIAL NEB ONE (22:35)
[2024-08-12 23:02] LABS: BASO % 0.4 % (0.0-1.0); EOS # 0.2 10*3/uL (0.0-0.4); EOS % 1.8 % (1.0-4.0); HEMATOCRIT 39.4 % (42.0-52.0); MEAN CELL VOLUME 91.2 fl (80.0-94.0); MEAN CORPUSCULAR HGB 29.6 pg (27.0-31.0); MEAN CORPUSCULAR HGB CONC 32.5 g/dl (33.0-37.0); MEAN PLATELET VOLUME 10.5 fl (9.6-12.3); MONO # 1.3 10*3/uL (0.1-1.0); MONO % 12.9 % (3.0-9.0); NEUT # 7.6 10*3/uL (2.3-7.9); NEUT % 73.8 % (47.0-73.0); PLATELET COUNT AUTOMATED 151 10*3/uL (130-400); RED BLOOD COUNT 4.32 10*6/uL (4.50-5.90); RED CELL DISTRI WIDTH 13.2 % (0-14.5); WHITE BLOOD COUNT 10.4 10*3/uL (4.8-10.8)
[2024-08-12 23:20] VITALS: BP 108/67
[2024-08-12 23:26] LABS: ALKALINE PHOSPHATASE 68 U/L (46-116); BUN 16 mg/dl (9-23); CHLORIDE 105 mmol/L (98-107); POTASSIUM 3.7 mmol/L (3.4-5.1); SGPT/ALT 9 U/L (5-49); TOTAL PROTEIN 7.1 gm/dL (6.0-8.0)
[2024-08-12] MEDS ORDERED: Piperacillin Sodium/Tazobact 100 ML IV ONE (23:50)
[2024-08-13] VITALS (10 sets, daily range): BP systolic 84–129; BP diastolic 45–94
[2024-08-13] MEDS ORDERED: SODIUM CHLORIDE 0.9% 1,000 ML IV ONE ×2 (00:15→11:30)
[2024-08-13] MEDS ORDERED: Albuterol Sulf/Ipratropium 3 ML VIAL NEB SCH (00:20)
[2024-08-13] MEDS ORDERED: VANCOMYCIN HCL 1,500 MG in SODIUM CHLORIDE 0.9% 500 ML IV ONE (00:45)
[2024-08-13] MEDS ORDERED: AZITHROMYCIN 250 ML IV SCH (01:00)
[2024-08-13] MEDS ORDERED: SODIUM CHLORIDE 0.9% 100 ML BAG IV ONE (01:10)
[2024-08-13] MEDS ORDERED: IOHEXOL 350 MG/ML 100 ML VIAL IV ONE ×2 (01:10→01:31)
[2024-08-13] MEDS ORDERED: SODIUM CHLORIDE 0.9% 100 ML IV ONE (01:31)
[2024-08-13] MEDS ORDERED: CALAMINE LOTIO177 M2 T (02:32)
[2024-08-13] MEDS ORDERED: TRANSDERM-SCOP1 EAC1 T (02:35)
[2024-08-13] MEDS ORDERED: SKIN PROTECTAN454 GM T (02:37)
[2024-08-13] MEDS ORDERED: GUAIFENESI100 MG/52 PO (02:45)
[2024-08-13] MEDS ORDERED: FOAM BANDAGE 5X5 T ONE (03:38)
[2024-08-13] MEDS ORDERED: FOAM BANDAGE HEEL T ONE (03:38)
[2024-08-13] MEDS ORDERED: FOAM BANDAGE 1 EACH BANDAGE T ONE (03:38)
[2024-08-13] MEDS ORDERED: ACETAMINOPHEN 70 ML IV ONE (03:40)
[2024-08-13] MEDS ORDERED: LORazepam 2 MG/ML VIAL IV ONE (03:40)
[2024-08-13] MEDS ORDERED: ACETAMINOPHEN 100 ML IV ONE (04:44)
[2024-08-13] MEDS ORDERED: Piperacillin Sodium/Tazobact 50 ML IV SCH (06:00)
[2024-08-13] MEDS ORDERED: Vancomycin Hydrochloride 1,000 MG VIAL IV ONE (07:54)
[2024-08-13] MEDS ORDERED: Vancomycin Hydrochloride 500 MG VIAL IV ONE (07:54)
[2024-08-13] MEDS ORDERED: SODIUM CHLORIDE 0.9% 500 ML BAG IV ONE (07:54)
[2024-08-13] MEDS ORDERED: Enoxaparin Sodium 40 MG/0.4 ML SYR SC SCH (10:00)
[2024-08-13] MEDS ORDERED: Menthol/Zinc Oxide 4 GM THIN T PRN (12:50)
[2024-08-13] MEDS ORDERED: SODIUM CHLORIDE 0.45% 1,000 ML IV ONE (15:00)
[2024-08-13] MEDS ORDERED: Vancomycin Hydrochloride 1,000 MG in SODIUM CHLORIDE 0.9% 250 ML IV SCH (15:00)
[2024-08-13] MEDS ORDERED: Menthol/Zinc Oxide 4 GM THIN T SCH (22:00)
[2024-08-14 06:38] LABS: BASO % 0.6 % (0.0-1.0); EOS # 0.4 10*3/uL (0.0-0.4); EOS % 5.7 % (1.0-4.0); HEMATOCRIT 32.2 % (42.0-52.0); MEAN CELL VOLUME 93.3 fl (80.0-94.0); MEAN CORPUSCULAR HGB 30.1 pg (27.0-31.0); MEAN CORPUSCULAR HGB CONC 32.3 g/dl (33.0-37.0); MEAN PLATELET VOLUME 10.5 fl (9.6-12.3); MONO # 0.7 10*3/uL (0.1-1.0); MONO % 11.6 % (3.0-9.0); NEUT # 3.9 10*3/uL (2.3-7.9); NEUT % 60.4 % (47.0-73.0); PLATELET COUNT AUTOMATED 120 10*3/uL (130-400); RED BLOOD COUNT 3.45 10*6/uL (4.50-5.90); RED CELL DISTRI WIDTH 13.2 % (0-14.5); WHITE BLOOD COUNT 6.4 10*3/uL (4.8-10.8)
[2024-08-14 07:00] LABS: ALKALINE PHOSPHATASE 51 U/L (46-116); BUN 11 mg/dl (9-23); CHLORIDE 105 mmol/L (98-107); POTASSIUM 3.6 mmol/L (3.4-5.1); SGPT/ALT 8 U/L (5-49); TOTAL PROTEIN 5.9 gm/dL (6.0-8.0)
[2024-08-14 08:00] VITALS: BP 105/66
[2024-08-14] MEDS ORDERED: AQUAPHOR OINTMENT Base 50 GM TUBE T SCH (10:00)
[2024-08-14 12:00] VITALS: BP 106/68
[2024-08-14 16:00] VITALS: BP 119/82
[2024-08-14 17:30] LABS: BUN 9 mg/dl (9-23); CHLORIDE 103 mmol/L (98-107); POTASSIUM 3.5 mmol/L (3.4-5.1)
[2024-08-14] MEDS ORDERED: TOTAL PARENTERAL NUTRITION IV SCH (18:00)
[2024-08-14] MEDS ORDERED: [UNRECOGNIZED DRUG - OTHER] IV SCH (18:00)
[2024-08-14] MEDS ORDERED: [UNRECOGNIZED DRUG - OTHER] IV SCH (18:00)
[2024-08-14 20:00] VITALS: BP 125/73
[2024-08-15] VITALS: BP 138/84
[2024-08-15 06:56] LABS: BASO % 0.6 % (0.0-1.0); EOS # 0.4 10*3/uL (0.0-0.4); EOS % 5.6 % (1.0-4.0); HEMATOCRIT 34.9 % (42.0-52.0); MEAN CELL VOLUME 91.6 fl (80.0-94.0); MEAN CORPUSCULAR HGB 29.9 pg (27.0-31.0); MEAN CORPUSCULAR HGB CONC 32.7 g/dl (33.0-37.0); MEAN PLATELET VOLUME 10.4 fl (9.6-12.3); MONO # 0.7 10*3/uL (0.1-1.0); MONO % 11.4 % (3.0-9.0); NEUT # 3.7 10*3/uL (2.3-7.9); NEUT % 58.1 % (47.0-73.0); PLATELET COUNT AUTOMATED 145 10*3/uL (130-400); RED BLOOD COUNT 3.81 10*6/uL (4.50-5.90); RED CELL DISTRI WIDTH 13.2 % (0-14.5); WHITE BLOOD COUNT 6.4 10*3/uL (4.8-10.8)
[2024-08-15 07:20] LABS: BUN 10 mg/dl (9-23); CHLORIDE 104 mmol/L (98-107); POTASSIUM 3.7 mmol/L (3.4-5.1)
[2024-08-15 08:00] VITALS: BP 131/74
[2024-08-15 12:00] VITALS: BP 103/72
[2024-08-15 16:00] VITALS: BP 110/70
[2024-08-15] MEDS ORDERED: FOAM BANDAGE 1 EACH BANDAGE T ONE (18:45)
[2024-08-15 20:00] VITALS: BP 108/87
[2024-08-16 00:46] VITALS: BP 104/62
[2024-08-16 06:30] LABS: BASO % 0.6 % (0.0-1.0); EOS # 0.5 10*3/uL (0.0-0.4); EOS % 8.1 % (1.0-4.0); MEAN CELL VOLUME 91.9 fl (80.0-94.0); MEAN CORPUSCULAR HGB 29.7 pg (27.0-31.0); MEAN CORPUSCULAR HGB CONC 32.3 g/dl (33.0-37.0); MONO # 0.8 10*3/uL (0.1-1.0); MONO % 11.9 % (3.0-9.0); NEUT % 46.5 % (47.0-73.0); PLATELET COUNT AUTOMATED 156 10*3/uL (130-400); RED BLOOD COUNT 3.81 10*6/uL (4.50-5.90); RED CELL DISTRI WIDTH 13.2 % (0-14.5); WHITE BLOOD COUNT 6.4 10*3/uL (4.8-10.8)
[2024-08-16 06:32] LABS: BUN 10 mg/dl (9-23); CHLORIDE 103 mmol/L (98-107); POTASSIUM 3.7 mmol/L (3.4-5.1)
[2024-08-16 08:00] VITALS: BP 107/60
[2024-08-16 12:00] VITALS: BP 105/66
[2024-08-16 16:00] VITALS: BP 106/70
[2024-08-16 20:00] VITALS: BP 113/67
[2024-08-17] VITALS: BP 108/69
[2024-08-17 04:00] VITALS: BP 111/66
[2024-08-17 06:17] LABS: BASO # 0.1 10*3/uL (0.0-0.1); BASO % 0.9 % (0.0-1.0); EOS # 0.5 10*3/uL (0.0-0.4); EOS % 9.3 % (1.0-4.0); HEMATOCRIT 34.1 % (42.0-52.0); MEAN CELL VOLUME 90.9 fl (80.0-94.0); MEAN CORPUSCULAR HGB 29.9 pg (27.0-31.0); MEAN CORPUSCULAR HGB CONC 32.8 g/dl (33.0-37.0); MEAN PLATELET VOLUME 10.5 fl (9.6-12.3); MONO # 0.6 10*3/uL (0.1-1.0); MONO % 11.4 % (3.0-9.0); NEUT # 2.5 10*3/uL (2.3-7.9); NEUT % 44.4 % (47.0-73.0); PLATELET COUNT AUTOMATED 164 10*3/uL (130-400); RED BLOOD COUNT 3.75 10*6/uL (4.50-5.90); RED CELL DISTRI WIDTH 13.2 % (0-14.5); WHITE BLOOD COUNT 5.5 10*3/uL (4.8-10.8)
[2024-08-17 06:45] LABS: BUN 10 mg/dl (9-23); CHLORIDE 104 mmol/L (98-107); POTASSIUM 4.1 mmol/L (3.4-5.1)
[2024-08-17 08:00] VITALS: BP 85/71
[2024-08-17 12:00] VITALS: BP 110/60
[2024-08-17] MEDS ORDERED: LORazepam 2 MG/ML VIAL IV ONE (15:15)
[2024-08-17 16:00] VITALS: BP 101/50
[2024-08-17] MEDS ORDERED: [UNRECOGNIZED DRUG - OTHER] IV SCH (18:00)
[2024-08-17 20:00] VITALS: BP 116/55
[2024-08-18] VITALS: BP 118/58
[2024-08-18 04:00] VITALS: BP 119/62
[2024-08-18 06:29] LABS: BASO % 0.4 % (0.0-1.0); EOS # 0.5 10*3/uL (0.0-0.4); EOS % 5.4 % (1.0-4.0); MEAN CELL VOLUME 91.6 fl (80.0-94.0); MEAN CORPUSCULAR HGB 29.8 pg (27.0-31.0); MEAN CORPUSCULAR HGB CONC 32.6 g/dl (33.0-37.0); MEAN PLATELET VOLUME 10.2 fl (9.6-12.3); MONO # 1.3 10*3/uL (0.1-1.0); MONO % 14.1 % (3.0-9.0); NEUT # 5.4 10*3/uL (2.3-7.9); NEUT % 59.7 % (47.0-73.0); PLATELET COUNT AUTOMATED 191 10*3/uL (130-400); RED BLOOD COUNT 3.82 10*6/uL (4.50-5.90); RED CELL DISTRI WIDTH 13.3 % (0-14.5)
[2024-08-18 06:54] LABS: ALKALINE PHOSPHATASE 48 U/L (46-116); BUN 14 mg/dl (9-23); CHLORIDE 106 mmol/L (98-107); POTASSIUM 4.4 mmol/L (3.4-5.1); SGPT/ALT 13 U/L (5-49); TOTAL PROTEIN 6.5 gm/dL (6.0-8.0)
[2024-08-18 08:00] VITALS: BP 103/74
[2024-08-18] MEDS ORDERED: VANCOMYCIN/WATER FOR INJ (PEG) 300 ML IV SCH (08:00)
[2024-08-18 12:00] VITALS: BP 110/62
[2024-08-18 16:00] VITALS: BP 139/60
[2024-08-18] MEDS ORDERED: [UNRECOGNIZED DRUG - OTHER] IV SCH (18:00)
[2024-08-18 20:00] VITALS: BP 143/71
[2024-08-18] MEDS ORDERED: Ondansetron Hydrochloride 4 MG/2 ML VIAL IV ONE (21:05)
[2024-08-18] MEDS ORDERED: Pantoprazole Sodium 40 MG VIAL IV SCH (22:50)
[2024-08-19] VITALS: BP 135/92
[2024-08-19] MEDS ORDERED: diazePAM 10 MG/2 ML SYR IV ONE (00:25)
[2024-08-19] MEDS ORDERED: Haloperidol Lactate 5 MG/ML AMP IV ONE (00:35)
[2024-08-19] MEDS ORDERED: Scopolamine 1 PATCH PATCH T PRN (00:35)
[2024-08-19 04:55] LABS: BUN 11 mg/dl (9-23); CHLORIDE 107 mmol/L (98-107); POTASSIUM 5.3 mmol/L (3.4-5.1)
[2024-08-19 08:00] VITALS: BP 153/62
[2024-08-19 08:19] LABS: BASO # 0.1 10*3/uL (0.0-0.1); BASO % 0.7 % (0.0-1.0); EOS # 0.7 10*3/uL (0.0-0.4); EOS % 6.9 % (1.0-4.0); HEMATOCRIT 35.6 % (42.0-52.0); MEAN CELL VOLUME 92.5 fl (80.0-94.0); MEAN CORPUSCULAR HGB 29.6 pg (27.0-31.0); MEAN PLATELET VOLUME 10.5 fl (9.6-12.3); MONO # 1.4 10*3/uL (0.1-1.0); MONO % 13.3 % (3.0-9.0); NEUT # 6.5 10*3/uL (2.3-7.9); NEUT % 60.7 % (47.0-73.0); PLATELET COUNT AUTOMATED 166 10*3/uL (130-400); RED BLOOD COUNT 3.85 10*6/uL (4.50-5.90); RED CELL DISTRI WIDTH 13.4 % (0-14.5); WHITE BLOOD COUNT 10.7 10*3/uL (4.8-10.8)
[2024-08-19 12:00] VITALS: BP 148/55
[2024-08-19] MEDS ORDERED: FOAM BANDAGE 1 EACH BANDAGE T ONE (14:52)
[2024-08-19] MEDS ORDERED: FOAM BANDAGE HEEL T ONE (15:03)
[2024-08-19 16:00] VITALS: BP 138/52
[2024-08-19] MEDS ORDERED: [UNRECOGNIZED DRUG - OTHER] IV SCH (18:00)
[2024-08-19] MEDS ORDERED: SODIUM ACETATE IV SCH (18:00)
[2024-08-19] MEDS ORDERED: MULTIVITAMIN IV SCH (18:00)
[2024-08-19 20:00] VITALS: BP 124/96
[2024-08-20 04:00] VITALS: BP 146/92
[2024-08-20 07:44] LABS: BASO # 0.1 10*3/uL (0.0-0.1); BASO % 0.9 % (0.0-1.0); EOS # 0.8 10*3/uL (0.0-0.4); EOS % 10.6 % (1.0-4.0); MEAN CELL VOLUME 92.5 fl (80.0-94.0); MEAN CORPUSCULAR HGB 29.8 pg (27.0-31.0); MEAN CORPUSCULAR HGB CONC 32.2 g/dl (33.0-37.0); MEAN PLATELET VOLUME 10.5 fl (9.6-12.3); MONO # 1.2 10*3/uL (0.1-1.0); MONO % 14.8 % (3.0-9.0); NEUT % 49.9 % (47.0-73.0); PLATELET COUNT AUTOMATED 165 10*3/uL (130-400); RED BLOOD COUNT 3.46 10*6/uL (4.50-5.90); RED CELL DISTRI WIDTH 13.4 % (0-14.5)
[2024-08-20 08:00] VITALS: BP 152/60
[2024-08-20 08:05] LABS: ALKALINE PHOSPHATASE 47 U/L (46-116); BUN 14 mg/dl (9-23); CHLORIDE 105 mmol/L (98-107); SGPT/ALT 10 U/L (5-49); TOTAL PROTEIN 6.3 gm/dL (6.0-8.0)
[2024-08-20 08:13] LABS: POTASSIUM 3.9 mmol/L (3.4-5.1)
[2024-08-20 12:00] VITALS: BP 116/52
[2024-08-20] MEDS ORDERED: MULTIVITAMIN IV SCH (18:00)
[2024-08-20] MEDS ORDERED: POTASSIUM ACETATE IV SCH (18:00)
[2024-08-20] MEDS ORDERED: [UNRECOGNIZED DRUG - OTHER] IV SCH (18:00)
== END 2024-08-20 16:25 | DRG 871 ==
LOC: ED → 4E 23:55 → EDHOLD 23:55 → 4E 08-13 01:34
PROVIDERS: Emergency Medicine; Internal Medicine; Student in an Organized Health Care Education/Training Program; ADMIT Internal Medicine; ATTEND Internal Medicine
PROC: 02HV33Z Insertion of Infusion Device into Superior Vena Cava, Percutaneous Approach (ICD-10-PCS; principal; 2024-08-17)
PROC: B548ZZA Ultrasonography of Superior Vena Cava, Guidance (ICD-10-PCS; 2024-08-17)
DX: A41.9 Sepsis, unspecified organism (principal); J69.0 Pneumonitis due to inhalation of food and vomit; L89.893 Pressure ulcer of other site, stage 3; J96.01 Acute respiratory failure with hypoxia; G10 Huntington's disease; E44.0 Moderate protein-calorie malnutrition; I47.29 Other ventricular tachycardia; Z68.1 Body mass index [BMI] 19.9 or less, adult; T17.918A Gastric contents in respiratory tract, part unspecified causing other injury, initial encounter; E87.5 Hyperkalemia; F41.9 Anxiety disorder, unspecified; G89.4 Chronic pain syndrome; K21.9 Gastro-esophageal reflux disease without esophagitis; F63.81 Intermittent explosive disorder; R47.1 Dysarthria and anarthria; R73.9 Hyperglycemia, unspecified; R65.20 Severe sepsis without septic shock; D64.9 Anemia, unspecified; R13.12 Dysphagia, oropharyngeal phase; F02.80 Dementia in other diseases classified elsewhere, unspecified severity, without behavioral disturbance, psychotic disturbance, mood disturbance, and anxiety; S80.212A Abrasion, left knee, initial encounter; Z79.899 Other long term (current) drug therapy; Z79.01 Long term (current) use of anticoagulants; Z79.2 Long term (current) use of antibiotics; Z87.891 Personal history of nicotine dependence; Z84.89 Family history of other specified conditions; X58.XXXA Exposure to other specified factors, initial encounter; W44.8XXA Other foreign body entering into or through a natural orifice, initial encounter; Y93.89 Activity, other specified; Y92.89 Other specified places as the place of occurrence of the external cause; Y99.8 Other external cause status; Z91.81 History of falling